=== PATIENT | female | born 1960 | race Caucasian/White ===

== ENCOUNTER 2017-08-23 22:34 | Observation (INO) | payer OTHER ==
[2017-08-24] MEDS ORDERED: GLUCOSE GEL 15 GRAM TUBE PO ×2 (02:15)
[2017-08-24] MEDS ORDERED: DEXTROSE 50% 50 ML SYRINGE IV ×2 (02:15)
[2017-08-24] MEDS ORDERED: GLUCOSE GEL 15 GRAM TUBE BUCCAL (02:15)
[2017-08-24] MEDS ORDERED: GLUCAGON 1 MG INJ IM (02:15)
[2017-08-24] MEDS ORDERED: ACETAMINOPHEN 325 MG TAB PO (02:30)
[2017-08-24] MEDS ORDERED: NITROGLYCERIN (SL) 0.4 MG TAB SL (02:30)
[2017-08-24] MEDS ORDERED: DOCUSATE SODIUM 100 MG CAP PO (02:30)
[2017-08-24] MEDS ORDERED: morphine 2 MG INJ IV (02:30)
[2017-08-24] MEDS ORDERED: BISACODYL (EC) 5 MG TAB PO (02:30)
[2017-08-24] MEDS ORDERED: NACL 0.9% 3 ML SYG IV (02:30)
[2017-08-24] MEDS ORDERED: ONDANSETRON 4 MG TAB PO (02:30)
[2017-08-24] MEDS: ALBUTEROL HFA 8 GM INHALER INH ×5 (05:00→20:19)
[2017-08-24 05:33] LABS: CREATINE KINASE < 20 IU/L (23-200)
[2017-08-24 05:41] LABS: CK-MB < 0.22 ng/ml (0.0-2.4); TROPONIN-I < 0.012 ng/ml (0.00-0.12)
[2017-08-24 07:21] LABS: ADD MAN DIFF? NO
[2017-08-24 07:26] LABS: WHITE BLOOD COUNT 7.2 10^3/ul (4.8-10.8)
[2017-08-24 07:26] LABS: BASOPHILS % 0.4 % (0.0-2.0); EOSINOPHILS # 0.2 10^3/ul (0.0-0.5); EOSINOPHILS % 2.2 % (0.0-7.0); HEMATOCRIT 40.1 % (37.0-47.0); LYMPHOCYTES # 1.7 10^3/ul (0.8-2.9); LYMPHOCYTES % 23.8 % (15.0-51.0); MEAN CORPUSCULAR HEMOGLOBIN 28.9 pg (29.0-33.0); MEAN CORPUSCULAR HGB CONC 34.9 g/dl (32.0-37.0); MEAN CORPUSCULAR VOLUME 82.7 fl (82.0-101.0); MEAN PLATELET VOLUME 9.3 fl (7.4-10.4); MONOCYTE # 0.5 10^3/ul (0.3-0.9); MONOCYTES % 7.1 % (0.0-11.0); NEUTROPHIL # 4.7 10^3/ul (1.6-7.5); NEUTROPHILS % 65.5 % (39.0-77.0); PLATELET COUNT 196 10^3/UL (140-415); RED BLOOD COUNT 4.85 10^6/ul (4.20-5.40); RED CELL DISTRIBUTION WIDTH 12.5 % (11.5-14.5)
[2017-08-24 07:54] LABS: ALANINE AMINOTRANSFERASE 29 IU/L (13-69); ALBUMIN 3.7 g/dl (3.3-4.9); ALBUMIN/GLOBULIN RATIO 1.42; ALKALINE PHOSPHATASE 128 IU/L (42-121); ANION GAP 14 (8-16); ASPARTATE AMINO TRANSFERASE 15 IU/L (15-46); BILIRUBIN,INDIRECT 0.2 mg/dl (0-1.1); BILIRUBIN,TOTAL 0.2 mg/dl (0.2-1.3); BLOOD UREA NITROGEN 12 mg/dl (7-20); CARBON DIOXIDE 25 mmol/L (21-31); CHLORIDE 104 mmol/L (97-110); CHOL/HDL RATIO 4.2 RATIO; CHOLESTEROL 206 mg/dl (100-200); CREATININE 0.45 mg/dl (0.44-1.00); GLUCOSE 277 mg/dl (70-220); HDL CHOLESTEROL 49 mg/dl (37-92); LDL CHOLESTEROL,CALCULATED 130 mg/dl; MAGNESIUM 1.8 mg/dl (1.7-2.5); POTASSIUM 4.1 mmol/L (3.5-5.1); SODIUM 139 mmol/L (135-144); TOTAL PROTEIN 6.3 g/dl (6.1-8.1); TRIGLYCERIDES 133 mg/dl (0-149)
[2017-08-24] MEDS: RANITIDINE 150 MG TAB PO (08:16)
[2017-08-24] MEDS: LORAZEPAM 1 MG TAB PO (08:16)
[2017-08-24] MEDS: RISPERIDONE 0.25 MG TAB PO (08:16)
[2017-08-24] MEDS: INSULIN ASPART [NOVOLOG] 3 ML PEN SC ×6 (08:36→20:29)
[2017-08-24 09:02] LABS: CREATINE KINASE < 20 IU/L (23-200)
[2017-08-24 09:17] LABS: TROPONIN-I < 0.012 ng/ml (0.00-0.12)
[2017-08-24 09:18] LABS: CK-MB < 0.22 ng/ml (0.0-2.4)
[2017-08-24] MEDS: MOMETASONE 0.24 GM INHALER INH (10:47)
[2017-08-24] MEDS: ASPIRIN 81 MG TAB PO (12:32)
[2017-08-24] MEDS: INSULIN GLARGINE [LANtus] 3 ML PEN SC (12:44)
[2017-08-24] MEDS: BUPROPION (XL) 150 MG TAB PO (20:19)
[2017-08-24] MEDS: PANTOPRAZOLE (EC) 40 MG TAB PO (20:19)
[2017-08-25] MEDS: ALBUTEROL HFA 8 GM INHALER INH ×5 (01:00→17:46)
[2017-08-25] MEDS: ACCU-CHEK XX (02:00)
[2017-08-25] MEDS: PANTOPRAZOLE (EC) 40 MG TAB PO ×2 (05:55→18:07)
[2017-08-25 06:19] LABS: ADD MAN DIFF? NO
[2017-08-25 06:24] LABS: BASOPHILS % 0.5 % (0.0-2.0); EOSINOPHILS # 0.2 10^3/ul (0.0-0.5); EOSINOPHILS % 2.4 % (0.0-7.0); HEMATOCRIT 41.8 % (37.0-47.0); HEMOGLOBIN 14.2 g/dl (12.0-16.0); LYMPHOCYTES # 2.1 10^3/ul (0.8-2.9); LYMPHOCYTES % 25.5 % (15.0-51.0); MEAN CORPUSCULAR HEMOGLOBIN 28.3 pg (29.0-33.0); MEAN CORPUSCULAR VOLUME 83.4 fl (82.0-101.0); MEAN PLATELET VOLUME 9.6 fl (7.4-10.4); MONOCYTE # 0.5 10^3/ul (0.3-0.9); MONOCYTES % 6.1 % (0.0-11.0); NEUTROPHIL # 5.2 10^3/ul (1.6-7.5); NEUTROPHILS % 64.8 % (39.0-77.0); PLATELET COUNT 208 10^3/UL (140-415); RED BLOOD COUNT 5.01 10^6/ul (4.20-5.40); RED CELL DISTRIBUTION WIDTH 12.7 % (11.5-14.5)
[2017-08-25 06:52] LABS: ANION GAP 15 (8-16); BLOOD UREA NITROGEN 19 mg/dl (7-20); CALCIUM 9.1 mg/dl (8.4-10.2); CARBON DIOXIDE 24 mmol/L (21-31); CHLORIDE 105 mmol/L (97-110); CREATININE 0.46 mg/dl (0.44-1.00); GLUCOSE 265 mg/dl (70-220); MAGNESIUM 1.8 mg/dl (1.7-2.5); POTASSIUM 4.1 mmol/L (3.5-5.1); SODIUM 140 mmol/L (135-144)
[2017-08-25] MEDS: LORAZEPAM 1 MG TAB PO (08:24)
[2017-08-25] MEDS: MOMETASONE 0.24 GM INHALER INH (08:25)
[2017-08-25] MEDS: ASPIRIN 81 MG TAB PO (08:25)
[2017-08-25] MEDS: INSULIN ASPART [NOVOLOG] 3 ML PEN SC ×7 (08:27→17:48)
[2017-08-25] MEDS: INSULIN GLARGINE [LANtus] 3 ML PEN SC ×2 (08:29→11:01)
[2017-08-25] MEDS: SOD CHLORIDE 0.9% 500 ML IV (11:04)
[2017-08-25] MEDS: RISPERIDONE 0.25 MG TAB PO (11:51)
[2017-08-25 11:56] LABS: TROPONIN-I < 0.012 ng/ml (0.00-0.12)
[2017-08-26] MEDS ORDERED: INSULIN GLARGINE [LANtus] 3 ML PEN SC (08:00)
[2017-08-31] MEDS ORDERED: ALENDRONATE 70 MG TAB PO (06:00)
== END 2017-08-25 18:20 | disposition home or self-care (01) ==
LOC: TEL 22:34
DX: R07.89 Other chest pain (principal); J45.909 Unspecified asthma, uncomplicated; M81.0 Age-related osteoporosis without current pathological fracture; K29.70 Gastritis, unspecified, without bleeding; I10 Essential (primary) hypertension; E11.65 Type 2 diabetes mellitus with hyperglycemia; F41.9 Anxiety disorder, unspecified; I95.9 Hypotension, unspecified; Z79.4 Long term (current) use of insulin
CPT/HCPCS: 71045; 80048; 80053; 80061; 82550; 82553; 82962; 83036; 83735; 84443; 84484; 85025; 87081; 93306; G0378

== ENCOUNTER 2017-11-02 21:11 | Emergency (ER) | payer OTHER ==
[2017-11-03] MEDS: HYDROCODONE/APAP (10/325) TAB PO (01:04)
[2017-11-03] MEDS: INSULIN LISPRO 100 UNIT/ML VIAL SC (01:06)
== END 2017-11-03 01:41 | disposition home or self-care (01) ==
LOC: E/R 21:11
DX: M94.0 Chondrocostal junction syndrome [Tietze] (principal); E11.65 Type 2 diabetes mellitus with hyperglycemia; I10 Essential (primary) hypertension; Z87.891 Personal history of nicotine dependence; Z79.4 Long term (current) use of insulin
CPT/HCPCS: 82962; 96372; 99284-25

== ENCOUNTER 2017-11-18 14:52 | Emergency (ER) | payer OTHER ==
[2017-11-18] MEDS: LIDOCAINE/MYLANTA 40 ML BTL PO (15:58)
[2017-11-18] MEDS: ONDANSETRON (ODT) 4 MG TAB ODT (15:58)
[2017-11-18] MEDS: ACETAMINOPHEN 650MG/20.3ML CUP PO (15:58)
[2017-11-18 16:03] LABS: URINE PH (Dip) POC 6.5 (5.0-8.5)
[2017-11-18 16:03] LABS: URINE BLOOD (Dip) POC 3+ (NEGATIVE); URINE KETONES (Dip) POC 1+ (NEGATIVE); URINE LEUKOCYTE EST (Dip) POC 1+ (NEGATIVE); URINE NITRITE (Dip) POC Negative (NEGATIVE); URINE TOTAL PROTEIN POC 2+ (NEGATIVE)
== END 2017-11-18 16:41 | disposition home or self-care (01) ==
LOC: FTE 14:52
DX: N39.0 Urinary tract infection, site not specified (principal); F17.210 Nicotine dependence, cigarettes, uncomplicated; I10 Essential (primary) hypertension; J45.909 Unspecified asthma, uncomplicated; E11.9 Type 2 diabetes mellitus without complications; Z79.4 Long term (current) use of insulin
CPT/HCPCS: 81003; 99284

== ENCOUNTER 2017-12-06 03:16 | Emergency (ER) | payer OTHER ==
[2017-12-06] MEDS: SOD CHLORIDE 0.9% 500 ML IV (03:54)
[2017-12-06 03:59] LABS: ADD MAN DIFF? NO
[2017-12-06 04:11] LABS: BASOPHIL # 0.1 10^3/ul (0.0-0.1); BASOPHILS % 0.6 % (0.0-2.0); EOSINOPHILS # 0.3 10^3/ul (0.0-0.5); EOSINOPHILS % 3.6 % (0.0-7.0); HEMATOCRIT 38.7 % (37.0-47.0); HEMOGLOBIN 13.3 g/dl (12.0-16.0); LYMPHOCYTES # 2.2 10^3/ul (0.8-2.9); LYMPHOCYTES % 27.5 % (15.0-51.0); MEAN CORPUSCULAR HGB CONC 34.4 g/dl (32.0-37.0); MEAN CORPUSCULAR VOLUME 84.5 fl (82.0-101.0); MEAN PLATELET VOLUME 9.3 fl (7.4-10.4); MONOCYTE # 0.6 10^3/ul (0.3-0.9); MONOCYTES % 7.2 % (0.0-11.0); NEUTROPHIL # 4.7 10^3/ul (1.6-7.5); NEUTROPHILS % 60.3 % (39.0-77.0); PLATELET COUNT 246 10^3/UL (140-415); RED BLOOD COUNT 4.58 10^6/ul (4.20-5.40); RED CELL DISTRIBUTION WIDTH 13.2 % (11.5-14.5)
[2017-12-06 04:11] LABS: WHITE BLOOD COUNT 7.8 10^3/ul (4.8-10.8)
[2017-12-06 04:34] LABS: ALANINE AMINOTRANSFERASE 28 IU/L (13-69); ALBUMIN 3.8 g/dl (3.3-4.9); ALBUMIN/GLOBULIN RATIO 1.26; ALKALINE PHOSPHATASE 101 IU/L (42-121); ANION GAP 15 (8-16); ASPARTATE AMINO TRANSFERASE 16 IU/L (15-46); BILIRUBIN,INDIRECT 0.4 mg/dl (0-1.1); BILIRUBIN,TOTAL 0.4 mg/dl (0.2-1.3); BLOOD UREA NITROGEN 19 mg/dl (7-20); CALCIUM 9.2 mg/dl (8.4-10.2); CARBON DIOXIDE 23 mmol/L (21-31); CHLORIDE 107 mmol/L (97-110); CREATININE 0.63 mg/dl (0.44-1.00); GLUCOSE 214 mg/dl (70-220); LIPASE 29 U/L (23-300); POTASSIUM 4.3 mmol/L (3.5-5.1); SODIUM 141 mmol/L (135-144); TOTAL PROTEIN 6.8 g/dl (6.1-8.1)
[2017-12-06 04:46] LABS: B-TYPE NATRIURETIC PEPTIDE 66 PG/ML (0-125); TROPONIN-I < 0.010 ng/ml (0.000-0.120)
[2017-12-06] MEDS: LIDOCAINE/MYLANTA 40 ML BTL PO (05:59)
== END 2017-12-06 06:18 | disposition home or self-care (01) ==
LOC: E/R 03:16
DX: R07.9 Chest pain, unspecified (principal); I10 Essential (primary) hypertension; E11.9 Type 2 diabetes mellitus without complications; Z79.4 Long term (current) use of insulin; Z87.891 Personal history of nicotine dependence
CPT/HCPCS: 36415; 71045; 80053; 83690; 83880; 84484; 85025; 93005; 99285-25

== ENCOUNTER 2018-05-18 08:23 | Day surgery (SDC) | payer OTHER ==
[2018-05-18] MEDS ORDERED: MIDAZOLAM 1 MG/ML 2 ML INJ ×2 (10:35→10:36)
[2018-05-18] MEDS ORDERED: FENTAnyl 50 MCG/ML VIAL (10:36)
== END 2018-05-18 15:10 | disposition home or self-care (01) ==
LOC: GIL 08:23
DX: Z12.11 Encounter for screening for malignant neoplasm of colon (principal); D12.3 Benign neoplasm of transverse colon; E11.9 Type 2 diabetes mellitus without complications
CPT/HCPCS: 45380; 82962; 88305

== ENCOUNTER 2018-07-15 21:59 | Emergency (ER) | payer OTHER ==
[2018-07-16] MEDS: ACETAMINOPHEN 500 MG TAB PO (03:02)
[2018-07-16] MEDS: KETOROLAC 30 MG INJ IM ×2 (03:03)
== END 2018-07-16 04:10 | disposition home or self-care (01) ==
LOC: FTE 21:59
DX: S99.911A Unspecified injury of right ankle, initial encounter (principal); J45.909 Unspecified asthma, uncomplicated; E11.9 Type 2 diabetes mellitus without complications; I10 Essential (primary) hypertension; W18.30XA Fall on same level, unspecified, initial encounter; Y92.9 Unspecified place or not applicable; Z79.82 Long term (current) use of aspirin; Z79.4 Long term (current) use of insulin
CPT/HCPCS: 73562; 73610-RT; 96372; 99284-25; Z7502

== ENCOUNTER 2018-09-20 12:44 | Emergency (ER) | payer SELFPAY, OTHER | END 2018-09-20 15:36 | disposition left against medical advice (07) | LOC: E/R 12:44 | DX: Z53.21 Procedure and treatment not carried out due to patient leaving prior to being seen by health care provider (principal) ==